=== PATIENT | female | born 1995 | race Two or more races ===

== ENCOUNTER 2022-10-14 19:28 | Emergency (ER) | payer MEDICAID, OTHER ==
[~2022-10-14] VITALS: Ht 162.6 cm; Wt 80.0 kg
[2022-10-14] MEDS ORDERED: IBUPROFEN 800 MG TAB PO ONE (23:00)
[2022-10-14 23:26] VITALS: BP 124/75
== END 2022-10-14 23:56 | disposition home or self-care (01) ==
LOC: EDBD 19:28 → ER 19:28
DX: S16.1XXA Strain of muscle, fascia and tendon at neck level, initial encounter (principal); M54.50 Low back pain, unspecified; F17.210 Nicotine dependence, cigarettes, uncomplicated; V43.62XA Car passenger injured in collision with other type car in traffic accident, initial encounter; Y93.89 Activity, other specified; Y92.89 Other specified places as the place of occurrence of the external cause; Y99.8 Other external cause status